=== PATIENT | female | born 1995 | race Caucasian/White ===

== ENCOUNTER 2016-12-19 15:41 | Emergency (ER) | payer SELFPAY ==
[~2016-12-19] VITALS: Ht 154.9 cm; Wt 60.1 kg
[2016-12-19 16:03] VITALS: BP 117/84
== END 2016-12-19 17:28 | disposition left against medical advice (07) ==
LOC: ED 15:41
DX: Z53.21 Procedure and treatment not carried out due to patient leaving prior to being seen by health care provider (principal)

== ENCOUNTER 2017-06-27 11:45 | Emergency (ER) | payer OTHER ==
[2017-06-27 13:57] VITALS: BP 108/73
== END 2017-06-27 13:57 | disposition home or self-care (01) ==
LOC: ED 11:45
DX: J11.1 Influenza due to unidentified influenza virus with other respiratory manifestations (principal)